=== PATIENT | male | born 1955 | race Caucasian/White ===

== ENCOUNTER 2024-04-14 21:56 | Emergency (ER) | payer OTHER, BC ==
--- NOTE | 2024-04-14 22:16 | EDPHYS ---
Physician Documentation [facility] Name: Saud Ng Age: 68 yrs Sex: Male : 1955 Arrival Date: 04/14/2024 Time: 21:56 Bed 14 Private MD: ED Physician Amrik Hammer HPI: 04/14 22:07 This 68 yrs old Male presents to ER via Ambulatory with complaints of Chest claudette Pain. 22:07 The patient or guardian reports chest pain that is located primarily in the substernal claudette area. Onset: 1 day(s) ago. The pain radiates to Associated signs and symptoms: Pertinent positives: shortness of breath. The chest pain is described as a pressure. Duration: The patient or guardian reports multiple episodes, with no pattern. Modifying factors: The symptoms are alleviated by nothing. the symptoms are aggravated by nothing. Severity of pain: At its worst the pain was moderate in the emergency department the pain has improved moderately. The patient has experienced similar episodes in the past, multiple times. Historical: - Allergies: 22:02 No Known Allergies; kc6 - PMHx: 22:02 Hypertensive disorder; Myocardial infarction; Diabetes mellitus; kc6 - PSHx: 22:02 Stented artery; kc6 22:05 Appendectomy; kc6 - Immunization history:: Client reports receiving the 2nd dose of the Covid vaccine, Flu vaccine is not up to date. - Infectious Disease History:: Denies. - Social history:: Smoking status: Patient denies any tobacco usage or history of. - Family history:: not pertinent. ROS: 22:07 Constitutional: Negative for fever, chills, and weight loss, Eyes: Negative for injury, claudette pain, redness, and discharge, ENT: Negative for injury, pain, and discharge, Neck: Negative for injury, pain, and swelling, Respiratory: Negative for shortness of breath, cough, wheezing, and pleuritic chest pain, Abdomen/GI: Negative for abdominal pain, nausea, vomiting, diarrhea, and constipation, Back: Negative for injury and pain, : Negative for injury, bleeding, discharge, and swelling, MS/Extremity: Negative for injury and deformity, Skin: Negative for injury, rash, and discoloration, Neuro: Negative for headache, weakness, numbness, tingling, and seizure, Psych: Negative for depression, anxiety, suicide ideation, homicidal ideation, and hallucinations, Allergy/Immunology: Negative for hives, rash, and allergies, Endocrine: Negative for neck swelling, polydipsia, polyuria, polyphagia, and marked weight changes, Hematologic/Lymphatic: Negative for swollen nodes, abnormal bleeding, and unusual bruising, 22:07 Cardiovascular: Positive for chest pain, of the , 22:07 MS/extremity: Negative for acute changes, injury or acute deformity, Exam: 22:07 Constitutional: This is a well developed, well nourished patient who is awake, alert, claudette and in no acute distress. Head/Face: Normocephalic, atraumatic. Eyes: Pupils equal round and reactive to light, extra-ocular motions intact. Lids and lashes normal. Conjunctiva and sclera are non-icteric and not injected. Cornea within normal limits. Periorbital areas with no swelling, redness, or edema. ENT: Nares patent. No nasal discharge, no septal abnormalities noted. Tympanic membranes are normal and external auditory canals are clear. Oropharynx with no redness, swelling, or masses, exudates, or evidence of obstruction, uvula midline. Mucous membranes moist. Neck: Trachea midline, no thyromegaly or masses palpated, and no cervical lymphadenopathy. Supple, full range of motion without nuchal rigidity, or vertebral point tenderness. No Meningismus. Chest/axilla: Normal chest wall appearance and motion. Nontender with no deformity. No lesions are appreciated. Cardiovascular: Regular rate and rhythm with a normal S1 and S2. No gallops, murmurs, or rubs. Normal PMI, no JVD. No pulse deficits. Respiratory: Lungs have equal breath sounds bilaterally, clear to auscultation and percussion. No rales, rhonchi or wheezes noted. No increased work of breathing, no retractions or nasal flaring. Abdomen/GI: Soft, non-tender, with normal bowel sounds. No distension or tympany. No guarding or rebound. No evidence of tenderness throughout. Back: No spinal tenderness. No costovertebral tenderness. Full range of motion. Male : Normal genitalia with no discharge or lesions. Skin: Warm, dry with normal turgor. Normal color with no rashes, no lesions, and no evidence of cellulitis. MS/ Extremity: Pulses equal, no cyanosis. Neurovascular intact. Full, normal range of motion. Neuro: Awake and alert, GCS 15, oriented to person, place, time, and situation. Cranial nerves II-XII grossly intact. Motor strength 5/5 in all extremities. Sensory grossly intact. Cerebellar exam normal. Normal gait. Psych: Awake, alert, with orientation to person, place and time. Behavior, mood, and affect are within normal limits. 22:07 ECG was reviewed by the Attending Physician. Vital Signs: 22:01 BP 139 / 72; Pulse 81; Resp 17 S; Temp 97.9(O); Pulse Ox 100% on R/A; Weight 111.13 kg kc6 (R); Height 6 ft. 0 in. (R); Pain 5/10; 22:46 Weight 115.5 kg; pc2 23:00 BP 121 / 67; Pulse 71; Resp 16; Pulse Ox 98% on R/A; pc2 23:30 BP 107 / 74; Pulse 71; Resp 16; Pulse Ox 99% on R/A; pc2 04/15 00:00 BP 123 / 66; Pulse 62; Resp 18; Pulse Ox 98% on R/A; pc2 00:30 BP 116 / 66; Pulse 55; Resp 16; Pulse Ox 98% on R/A; pc2 01:00 BP 111 / 57; Pulse 56; Resp 16; Pulse Ox 98% on R/A; pc2 01:30 BP 126 / 66; Pulse 50; Resp 16; Pulse Ox 98% on R/A; pc2 02:00 BP 119 / 79; Pulse 58; Resp 15; Pulse Ox 98% on R/A; pc2 03:00 BP 125 / 75; Pulse 53; Resp 16; Pulse Ox 97% on R/A; pc2 04/14 22:01 Body Mass Index 33.23 (115.50 kg, 182.88 cm) [facility] 04/14 22:01 Pain Scale: Adult kc MDM: 04/14 22:01 Patient medically screened. claudette 22:10 Differential diagnosis: abnormal EKG, acute myocardial infarction, acute pericarditis, claudette anxiety, congestive heart failure Cholelithiasis costochondritis, esophagitis, gastroesophageal reflux disease (GERD), hiatal hernia, pancreatitis, peptic ulcer disease, pericarditis, pleurisy, pneumothorax, stable angina, unstable angina. HEART Score: History: Highly Suspicious (2), ECG: Non specific repolarization disturbance / LBTB / PM (1), Age: > or = 65 years (2), Risk Factors: > or = 3 Risk factors for atherosclerotic disease (2), [Hypercholesterolemia] [Hypertension] [DM] [+ Family HX] [Obesity] Troponin: < or = 1 x Normal Limit (0). The patient was given aspirin in the Emergency Department. AMBER Risk Score: 1 - patient's age is greater or equal to 65 years, 1 - Three or more CAD risk factors, [Family Hx], [HTN], [Elevated Cholesterol], [DM], 1- Known CAD, 1 - ASA use in past 7 days. Data reviewed: vital signs, nurses notes, lab test result(s), EKG, radiologic studies, CT scan, plain films. Consideration of Admission/Observation Escalation of care including admission/observation considered. I considered the following discharge prescriptions or medication management in the emergency department Medications were administered in the Emergency Department. See MAR. Independent interpretation of the following test(s) in the Emergency Department EKG: See my EKG interpretation above. Test considered but Not performed: CT: no ct chest. Historians other than the Patient: Spouse/Significant Other: and son. Care significantly affected by the following chronic conditions: Diabetes, Hypertension, Obesity. Counseling: I had a detailed discussion with the patient and/or guardian regarding the historical points, exam findings, and any diagnostic results supporting the discharge/admit diagnosis, lab results, radiology results, the need to transfer to another facility, for higher level of care, [facility] does not immediately have the required specialist, dr kari gómez. 04/14 22:02 Order name: Basic Metabolic Panel; Complete Time: 23:50 [facility] 04/14 22:02 Order name: CBC with Diff; Complete Time: 23:50 [facility] 04/14 22:02 Order name: LFT's; Complete Time: 23:50 [facility] 04/14 22:02 Order name: Magnesium; Complete Time: 23:50 [facility] 04/14 22:02 Order name: NT PRO-BNP; Complete Time: 23:50 [facility] 04/14 22:02 Order name: Troponin HS; Complete Time: 23:50 [facility] 04/14 22:02 Order name: Urinalysis w/ reflexes [facility] 04/14 22:48 Order name: Ptt, Activated; Complete Time: 23:50 vc1 04/14 23:13 Order name: Protime (+INR); Complete Time: 23:50 EDMS 04/15 02:40 Order name: Ptt, Activated pc2 04/15 04:53 Order name: Troponin High Sensitivity: 500 am [facility] 04/14 22:02 Order name: XRAY Chest (1 view) [facility] 04/14 22:02 Order name: Cardiac monitoring; Complete Time: 22:18 [facility] 04/14 22:02 Order name: EKG - Nurse/Tech; Complete Time: 22:12 [facility] 04/14 22:02 Order name: IV Saline Lock; Complete Time: 22:32 [facility] 04/14 22:02 Order name: Labs collected and sent; Complete Time: 22:32 [facility] 04/14 22:02 Order name: O2 Per Protocol; Complete Time: 22:18 [facility] 04/14 22:02 Order name: O2 Sat Monitoring; Complete Time: 22:18 [facility] Administered Medications: 22:40 Drug: Aspirin PO 162 mg PO once Route: PO; pc2 23:10 Follow up: Response: No adverse reaction pc2 22:40 Drug: Metoprolol PO 25 mg PO once Route: PO; pc2 23:10 Follow up: Response: No adverse reaction pc2 23:00 Drug: Famotidine IVP 20 mg IVP once; dilute with 10 mL 0.9% NaCl; give over 2 minutes pc2 Route: IVP; Site: right hand; 23:30 Follow up: Response: No adverse reaction pc2 23:00 Drug: morphine IVP or IV 2 mg IVP once over 4 mins Route: IVP; Infused Over: 4 mins; pc2 Site: right hand; 23:30 Follow up: Response: No adverse reaction; RASS: Alert and Calm (0) pc2 23:00 Drug: Ondansetron IVP 4 mg IVP once; over 2 minutes Route: IVP; Site: right hand; pc2 23:30 Follow up: Response: No adverse reaction pc2 23:07 Drug: Heparin (SD Drip) 12 units/kg/hr - ([place] [address] units, D5W IV 500 ml) IV at pc2 calculated rate Per protocol; Max initial rate 1000 units/hr {Co-Signature: [email or web address] (Luana Wheat RN).} Route: IV; Rate: calculated rate; Site: left hand; 23:37 Follow up: Response: No adverse reaction; IV Status: Infusion continued pc2 04/15 06:05 Follow up: IV Status: Infusion continued upon transfer pc2 04/14 23:08 Drug: Heparin (SD-Bolus No thrombolytic) - HEParin IVP 60 units/kg IVP once; Max 5000 pc2 units {Co-Signature: [email or web address] (Luana Wheat RN).} Route: IVP; Site: right hand; 23:38 Follow up: Response: No adverse reaction pc2 04/15 00:56 Not Given (Other Intervention Used): ns 0.9% 1000 ml IV at 125 ml/hr continuous pc2 00:56 Not Given (Patient Refused): morphineor iv 2 mg IVP once over 4 mins pc2 Disposition Summary: 04/14/24 22:15 Transfer Ordered Notes: Transfer Location: [facility] claudette Reason: Higher level of care claudette Condition: Stable claudette Problem: new claudette Symptoms: have improved claudette Accepting Physician: to protestant kari gómez(04/15/24 06:06) pc2 Diagnosis - Chest pain, unspecified claudette - Essential (primary) hypertension claudette - Angina pectoris, unspecified - sp stents x 2 claudette Forms: - Medication Reconciliation Form claudette - SBAR form claudette Signatures: Dispatcher [employer] EDMS Amrik Hammer MD MD claudette Sandra Del Rio, RN RN kc6 Willa Miller, RN RN pc2 Luana Wheat RN [email or web address] Corrections: (The following items were deleted from the chart) 04/14 22:03 22:02 BASIC METABOLIC PANEL+C.LAB.BRZ ordered. EDMS EDMS 22:03 22:02 CBC+H.LAB.BRZ ordered. EDMS EDMS 22:03 22:02 HEPATIC FUNCTION+C.LAB.BRZ ordered. EDMS EDMS 22:03 22:02 MAGNESIUM+C.LAB.BRZ ordered. EDMS EDMS 22:03 22:02 PROBNP+C.LAB.BRZ ordered. EDMS EDMS 22:03 22:02 Troponin High Sensitivity+C.LAB.BRZ ordered. EDMS EDMS 22:03 22:02 Urinalysis+U.LAB.BRZ ordered. EDMS EDMS 22:03 22:03 Chest Single View+RAD.RAD.BRZ ordered. EDMS EDMS 23:13 22:02 PROTIME (+INR)+COAG.LAB.BRZ ordered. EDMS EDMS 04/15 06:06 04/14 22:15 to protestant kari gómez claudette pc2
--- NOTE | 2024-04-14 22:16 | ER ---
Nurse's Notes [facility] Name: Saud Ng Age: 68 yrs Sex: Male : 1955 Arrival Date: 04/14/2024 Time: 21:56 Bed 14 Private MD: Diagnosis: Chest pain, unspecified;Essential (primary) hypertension;Angina pectoris, unspecified-sp stents x 2 Presentation: 04/14 22:01 Chief complaint: Patient states: intermittent CP with HTN since 1800. recent stent kc6 placed on the 10 of March. took 2 nitro [employer]. Coronavirus screen: At this time, the client does not indicate any symptoms associated with coronavirus-19. Ebola Screen: No symptoms or risks identified at this time. Initial Sepsis Screen: Does the patient meet any 2 criteria? No. Patient's initial sepsis screen is negative. Does the patient have a suspected source of infection? No. Patient's initial sepsis screen is negative. Risk Assessment: Do you want to hurt yourself or someone else? Patient reports no desire to harm self or others. Onset of symptoms was April 14, 2024. 22:01 Method Of Arrival: Ambulatory kc6 22:01 Acuity: KAITLIN 2 kc6 Triage Assessment: 22:29 General: Appears in no apparent distress. comfortable, well groomed, Behavior is calm, pc2 cooperative, appropriate for age. 22:29 Pain: Complains of pain in chest Quality of pain is described as discomfort. EENT: No pc2 signs and/or symptoms were reported regarding the EENT system. Neuro: Level of Consciousness is awake, alert, obeys commands, Oriented to person, place, time, situation, Appropriate for age Gait is steady, Speech is normal, Facial symmetry appears normal. Cardiovascular: Reports chest pain, lightheadedness, Heart tones S1 S2 Capillary refill < 3 seconds Clubbing of nail beds is absent JVD is absent Patient's skin is warm and dry. Pulses are all present. Respiratory: Airway is patent Respiratory effort is even, unlabored, Respiratory pattern is regular, symmetrical, Breath sounds are clear bilaterally. GI: No signs and/or symptoms were reported involving the gastrointestinal system. : No signs and/or symptoms were reported regarding the genitourinary system. Derm: No signs and/or symptoms reported regarding the dermatologic system. Musculoskeletal: No signs and/or symptoms reported regarding the musculoskeletal system. Historical: - Allergies: 22:02 No Known Allergies; kc6 - PMHx: 22:02 Hypertensive disorder; Myocardial infarction; Diabetes mellitus; kc6 - PSHx: 22:02 Stented artery; kc6 22:05 Appendectomy; kc6 - Immunization history:: Client reports receiving the 2nd dose of the Covid vaccine, Flu vaccine is not up to date. - Infectious Disease History:: Denies. - Social history:: Smoking status: Patient denies any tobacco usage or history of. - Family history:: not pertinent. Screenin:35 [facility] ED Fall Risk Assessment (Adult) History of falling in the last 3 months, pc2 including since admission No falls in past 3 months (0 pts) Confusion or Disorientation No (0 pts) Intoxicated or Sedated No (0 pts) Impaired Gait No (0 pts) Mobility Assist Device Used No (0 pt) Altered Elimination No (0 pt) Score/Fall Risk Level 0 - 2 = Low Risk Oriented to surroundings, Maintained a safe environment, Hourly rounding (assess needs \T\ fall precautionary measures) done. Abuse screen: Denies threats or abuse. Denies injuries from another. Nutritional screening: No deficits noted. Tuberculosis screening: No symptoms or risk factors identified. Assessment: 23:57 Reassessment: see triage. pc2 04/15 00:30 Reassessment: Patient appears in no apparent distress at this time. Patient and/or pc2 family updated on plan of care and expected duration. Pain level reassessed. Patient is alert, oriented x 3, equal unlabored respirations, skin warm/dry/pink. Patient states symptoms have improved. 01:45 Reassessment: Patient appears in no apparent distress at this time. Patient and/or pc2 family updated on plan of care and expected duration. Pain level reassessed. 03:20 Reassessment: aPTT within therapeutic range. Heparin infusion continues, no rate change pc2 required at this time. Will recheck levels in 4 hrs. Vital Signs: 04/14 22:01 BP 139 / 72; Pulse 81; Resp 17 S; Temp 97.9(O); Pulse Ox 100% on R/A; Weight 111.13 kg kc6 (R); Height 6 ft. 0 in. (R); Pain 5/10; 22:46 Weight 115.5 kg; pc2 23:00 BP 121 / 67; Pulse 71; Resp 16; Pulse Ox 98% on R/A; pc2 23:30 BP 107 / 74; Pulse 71; Resp 16; Pulse Ox 99% on R/A; pc2 04/15 00:00 BP 123 / 66; Pulse 62; Resp 18; Pulse Ox 98% on R/A; pc2 00:30 BP 116 / 66; Pulse 55; Resp 16; Pulse Ox 98% on R/A; pc2 01:00 BP 111 / 57; Pulse 56; Resp 16; Pulse Ox 98% on R/A; pc2 01:30 BP 126 / 66; Pulse 50; Resp 16; Pulse Ox 98% on R/A; pc2 02:00 BP 119 / 79; Pulse 58; Resp 15; Pulse Ox 98% on R/A; pc2 03:00 BP 125 / 75; Pulse 53; Resp 16; Pulse Ox 97% on R/A; pc2 04/14 22:01 Body Mass Index 33.23 (115.50 kg, 182.88 cm) [facility] 04/14 22:01 Pain Scale: Adult [facility] ED Course: 04/14 22:00 Patient arrived in ED. ra3 22:01 Amrik Hammer MD is Attending Physician. claudette 22:02 Triage completed. kc6 22:05 Arm band placed on. kc6 22:15 Willa Miller, RN is Primary Nurse. pc2 22:18 Client placed on continuous cardiac and pulse oximetry monitoring. NIBP monitoring pc2 applied. 22:18 X-ray(s) taken. pc2 22:31 Patient has correct armband on for positive identification. Placed in gown. Bed in low pc2 position. Call light in reach. Side rails up X2. 22:32 XRAY Chest (1 view) In Process Unspecified. EDMS 22:32 Basic Metabolic Panel Sent. pc2 22:32 CBC with Diff Sent. pc2 22:32 LFT's Sent. pc2 22:32 Magnesium Sent. pc2 22:32 NT PRO-BNP Sent. pc2 22:32 Troponin HS Sent. pc2 23:09 Ptt, Activated Sent. pc2 23:57 Provided Education on: POC and time frame. pc2 23:[address] Hammer contact [facility] office for [id number] consult. Informed Dr. Gray will call ty back for Sux2Yoz. 23:57 No provider procedures requiring assistance completed. pc2 08/28 00:[address] Pike. ty 00:37 [facility] transfer center called to initiate transfer, spoke with Leonor. ty 00:50 Transfer Center stated no cardiology beds available, and at max capacity. ty 01:03 Transfer called and stated will update regarding bed placement at 0400. ty 03:01 Ptt, Activated Sent. oe 03:01 Inserted saline lock: 22 gauge in left wrist, using aseptic technique. Blood collected. oe Flushed with 10 mL NS. 04:00 Contacted [facility] for an update regarding patient bed ty placement, on hold for 10 minutes, spoke with Leonor. Placed on hold again for 8 minutes. Doc 2 Doc initiated. 05:27 [facility] contacted for update regarding admin approval, stated ty admin approval was already given, but had not called. 05:37 [facility] called for patient transport, eta 20 minutes. ty 05:50 Report given to SEBASTIAN Snow receiving patient to [facility] ER. pc2 06:00 Bedside report given to [facility]. pc2 06:06 Patient transferred, IV remains in place. pc2 Administered Medications: 04/14 22:40 Drug: Aspirin PO 162 mg PO once Route: PO; pc2 23:10 Follow up: Response: No adverse reaction pc2 22:40 Drug: Metoprolol PO 25 mg PO once Route: PO; pc2 23:10 Follow up: Response: No adverse reaction pc2 23:00 Drug: Famotidine IVP 20 mg IVP once; dilute with 10 mL 0.9% NaCl; give over 2 minutes pc2 Route: IVP; Site: right hand; 23:30 Follow up: Response: No adverse reaction pc2 23:00 Drug: morphine IVP or IV 2 mg IVP once over 4 mins Route: IVP; Infused Over: 4 mins; pc2 Site: right hand; 23:30 Follow up: Response: No adverse reaction; RASS: Alert and Calm (0) pc2 23:00 Drug: Ondansetron IVP 4 mg IVP once; over 2 minutes Route: IVP; Site: right hand; pc2 23:30 Follow up: Response: No adverse reaction pc2 23:07 Drug: Heparin (NC Drip) 12 units/kg/[place] - ([place] [address] units, D5W IV 500 ml) IV at pc2 calculated rate Per protocol; Max initial rate 1000 units/hr {Co-Signature: [email or web address] (Luana Wheat RN).} Route: IV; Rate: calculated rate; Site: left hand; 23:37 Follow up: Response: No adverse reaction; IV Status: Infusion continued pc2 04/15 06:05 Follow up: IV Status: Infusion continued upon transfer pc2 04/14 23:08 Drug: Heparin (NC-Bolus No thrombolytic) - HEParin IVP 60 units/kg IVP once; Max 5000 pc2 units {Co-Signature: [email or web address] (Luana Wheat RN).} Route: IVP; Site: right hand; 23:38 Follow up: Response: No adverse reaction pc2 04/15 00:56 Not Given (Other Intervention Used): ns 0.9% 1000 ml IV at 125 ml/hr continuous pc2 00:56 Not Given (Patient Refused): morphineor iv 2 mg IVP once over 4 mins pc2 Medication: 04/14 23:54 VIS not applicable for this client. pc2 Outcome: 22:15 ER care complete, transfer ordered by . claudette 04/15 06:05 Transferred [facility] to [facility], Transfer form completed. X-rays sent pc2 w/ patient. Condition: stable Instructed on the need for transfer, Demonstrated understanding of instructions, 06:06 Patient left the ED. pc2 Signatures: Dispatcher [employer] EDMS Amrik Hammer MD MD cha Espinosa, Orlando oe Campbell, Kaitlyn, RN RN kc6 Irene Raphael ra3 Ned Torre Pam, RN RN pc2 Luana Wheat RN [email or web address] Corrections: (The following items were deleted from the chart) 04/14 22:04 22:01 Chief complaint: Patient states: intermittent CP with HTN since 1800. recent kc6 stent placed on the 10 of March. kc6 23:13 22:32 PROTIME (+INR)+COAG.LAB.BRZ drawn and sent. pc2 EDMS
[2024-04-14] MEDS ORDERED: HEPARIN 5000 UNIT/ML 1 ML VIAL ONE (22:25)
[2024-04-14] MEDS ORDERED: METOPROLOL TAR 25 MG TAB ONE (22:25)
[2024-04-14] MEDS ORDERED: ASPIRIN 81 MG CHEWABLE TABLET ONE (22:25)
[2024-04-14] MEDS ORDERED: ONDANSETRON 4 MG/2 ML VIAL ONE (22:25)
[2024-04-14] MEDS ORDERED: MORPHINE 2 MG/ML SYR ONE (22:26)
[2024-04-14] MEDS ORDERED: NA CHLORIDE 0.9% 1,000 ML ONE (22:26)
[2024-04-14] MEDS ORDERED: FAMOTIDINE 20 MG/2 ML VIAL IV ONE (22:26)
[2024-04-14] MEDS ORDERED: HEPARIN/D5W 25,000 UNIT/500 ML BAG IV ONE (22:27)
[2024-04-14 23:24] LABS: Absolute Eosinophils 0.2 K/uL (0-0.5); Absolute Lymphocytes (CBC) 1.6 K/uL (0.7-4.9); Absolute Monocytes 0.6 K/uL (0.1-1.3); Absolute Neutrophil 5.1 K/uL (1.8-8.0); Basophils % 0.6 % (0-1.3); Eosinophils % 2.3 % (0-4.4); Hematocrit 38.9 % (39.6-49.0); Hemoglobin 13.3 g/dL (13.6-17.9); Lymphocytes % 21.5 % (15.3-44.8); MCH 30.4 pg (27.0-35.0); MCHC 34.3 g/dL (32.0-36.0); MCV 88.6 fL (80-100); MPV 8.5 fL (7.6-11.3); Monocytes % 8.3 % (3.3-12.3); Neutrophils % 67.3 % (41.7-73.7); Platelets 188 thou/uL (152-406); RBC Red Blood Cell Count 4.39 M/uL (4.33-5.43); Red Cell Distribution Width 12.9 % (12.1-15.2)
[2024-04-14 23:26] LABS: PT Prothrombin Time 11.9 SECONDS (9.4-12.5); PTT, Activated Partial Thromb 32.1 SECONDS (24.3-36.9); Protime INR 1.06
[2024-04-14 23:35] LABS: ALT/SGPT 31 U/L (16-61); AST/SGOT 21 U/L (15-37); Albumin 3.9 g/dL (3.4-5.0); Albumin/Globulin Ratio 1.2 (1.1-1.8); Alkaline Phosphatase 34 U/L (45-117); Anion Gap 4.9 mEq/L (5.0-15.0); BUN Blood Urea Nitrogen 18 mg/dL (7-18); Bicarbonate 30 mEq/L (21-32); Bilirubin Total 0.3 mg/dL (0.2-1.0); Globulin 3.3 g/dL (2.3-3.5); Glomerular Filtration Rate 76 ml/min (=/>90); Glucose Level 188 mg/dL (74-106); Magnesium 2.1 mg/dL (1.6-2.4); NT PRO-BNP 59 pg/mL (<125); Potassium 3.9 mEq/L (3.5-5.1); Protein, Total 7.2 g/dL (6.4-8.2); Sodium Level 138 mEq/L (136-145)
[2024-04-14 23:43] LABS: Bilirubin Direct < 0.2 mg/dL (0-0.2); Bilirubin Indirect, Calculated 0.1 mg/dL (0.2-0.8)
[2024-04-15 05:46] LABS: Specific Gravity 1.008 (1.005-1.030); Urine Bilirubin NEGATIVE (Negative); Urine Blood Negative (Negative); Urine Clarity Clear (Clear); Urine Color Colorless (Yellow); Urine Glucose NEGATIVE (Negative); Urine Ketones NEGATIVE (Negative); Urine Microscopic Reflex YN NO UMIC; Urine Nitrite NEGATIVE (Negative); Urine Protein NEGATIVE (Negative); Urine Urobilinogen Normal (Normal); Urine pH 6.5 (5.0-7.0)
[2024-04-15 06:15] VITALS: TEMP 97.9
[2024-04-15 06:38] VITALS: BP 125/75; O2SAT 97
--- NOTE | 2024-04-15 10:08 | RAD REPORT ---
EXAM DESCRIPTION: RAD - Chest Single View - 04/14/2024 10:30 pm CLINICAL HISTORY: Chest Pain. COMPARISON: None. TECHNIQUE: XR CHEST 1 VIEW 04/14/2024 10:02 PM CDT FINDINGS: The heart is borderline in size. Lungs are clear without consolidation, atelectasis, mass or edema. There is no pleural effusion. There is no pneumothorax. There are no acute osseous findings . IMPRESSION: Clear lungs. Electronically signed by: Ron Hou MD 04/14/2024 11:05 PM CDT RP Due to temporary technical issues with the PACS/Fluency reporting system, reports are being signed by the in house radiologist without review as a courtesy to ensure prompt reporting. The interpreting r adiologist is fully responsible for the content of the report.
--- NOTE | 2024-04-16 12:55 | EKG ---
Test Date: 2024-04-14 Test Time: 22:10:03 Gear Lapper: JOSSIE MEASUREMENT RESULTS: Intervals: Rate: 81 NE: 162 QRSD: 108 QT: 378 QTc: 439 Costa: P: 69 NE: 162 QRS: -55 T: 56 INTERPRETIVE STATEMENTS: Normal sinus rhythm Left anterior fascicular block Moderate voltage criteria for LVH, may be normal variant Abnormal ECG No previous ECG available for comparison Electronically Signed On 04-16-24 12:54:54 CDT by Jonathon Gomez
== END 2024-04-15 06:06 | disposition short-term general hospital (02) ==
LOC: ER 21:56
DX: I10 Essential (primary) hypertension (principal); I20.9 Angina pectoris, unspecified; I25.2 Old myocardial infarction; Z95.818 Presence of other cardiac implants and grafts; E11.9 Type 2 diabetes mellitus without complications
CPT/HCPCS: 93005; 85025; 80048; 36415; 83735; 85610; 80076; 85730 ×2; 81003; 84484 ×2; 83880; 71045; J1644; J2270; J2405; J7030

== ENCOUNTER 2024-09-04 14:12 | Emergency (ER) | payer OTHER, BC ==
[2024-09-04 15:11] LABS: Absolute Eosinophils 0.1 K/uL (0-0.5); Absolute Lymphocytes (CBC) 1.7 K/uL (0.7-4.9); Absolute Monocytes 0.6 K/uL (0.1-1.3); Absolute Neutrophil 6.3 K/uL (1.8-8.0); Basophils % 0.4 % (0-1.3); Eosinophils % 0.8 % (0-4.4); Hematocrit 43.4 % (39.6-49.0); Hemoglobin 15.3 g/dL (13.6-17.9); Lymphocytes % 19.3 % (15.3-44.8); MCH 30.6 pg (27.0-35.0); MCHC 35.2 g/dL (32.0-36.0); MCV 86.9 fL (80-100); MPV 8.2 fL (7.6-11.3); Monocytes % 6.8 % (3.3-12.3); Neutrophils % 72.7 % (41.7-73.7); Platelets 220 thou/uL (152-406); RBC Red Blood Cell Count 4.99 M/uL (4.33-5.43); Red Cell Distribution Width 13.4 % (12.1-15.2)
[2024-09-04 15:13] LABS: PT Prothrombin Time 11.8 SECONDS (9.4-12.5); Protime INR 1.13
[2024-09-04 15:41] LABS: ALT/SGPT 34 U/L (16-61); AST/SGOT 20 U/L (15-37); Albumin 4.2 g/dL (3.4-5.0); Albumin/Globulin Ratio 1.1 (1.1-1.8); Alkaline Phosphatase 36 U/L (45-117); Anion Gap 10.1 mEq/L (5.0-15.0); BUN Blood Urea Nitrogen 18 mg/dL (7-18); Bicarbonate 25 mEq/L (21-32); Bilirubin Total 0.4 mg/dL (0.2-1.0); Globulin 3.7 g/dL (2.3-3.5); Glomerular Filtration Rate 69 ml/min (=/>90); Glucose Level 116 mg/dL (74-106); Magnesium 1.9 mg/dL (1.6-2.4); NT PRO-BNP 26 pg/mL (<125); Potassium 4.1 mEq/L (3.5-5.1); Protein, Total 7.9 g/dL (6.4-8.2); Sodium Level 135 mEq/L (136-145); Troponin High Sensitivity 6.1 pg/mL (<58.9)
[2024-09-04 15:43] LABS: Bilirubin Direct < 0.2 mg/dL (0-0.2); Bilirubin Indirect, Calculated 0.2 mg/dL (0.2-0.8)
--- NOTE | 2024-09-04 16:07 | RAD REPORT ---
EXAM: Chest Single View HISTORY: CHEST PAIN COMPARISON: 04/14/2024 FINDINGS: LUNGS/PLEURA: The lungs are clear. No pleural effusions or pneumothorax. No pulmonary edema. MEDIASTINUM: The mediastinal silhouette is within normal limits. CARDIAC: The cardiac silhouette is within normal limits. UPPER ABDOMEN: No significant abnormality. BONES: No acute abnormality. LINES/TUBES/OTHER: N/A IMPRESSION: No evidence of acute cardiopulmonary disease.
--- NOTE | 2024-09-04 17:37 | ER ---
Nurse's Notes [facility] Name: Saud Ng Age: 68 yrs Sex: Male : 1955 Arrival Date: 09/04/2024 Time: 14:12 Bed 15 Private MD: Diagnosis: Chest pain, unspecified Presentation: 09/04 14:16 Chief complaint: Patient states: chest pain started at noon, has taken 3 nitroglycerin, ko1 is wearing a portable monitor currently. Coronavirus screen: At this time, the client does not indicate any symptoms associated with coronavirus-19. Ebola Screen: No symptoms or risks identified at this time. Initial Sepsis Screen: Does the patient meet any 2 criteria? No. Patient's initial sepsis screen is negative. Does the patient have a suspected source of infection? No. Patient's initial sepsis screen is negative. Risk Assessment: Do you want to hurt yourself or someone else? Patient reports no desire to harm self or others. Onset of symptoms was September 04, 2024. 14:16 Method Of Arrival: Ambulatory ko1 14:16 Acuity: KAITLIN 3 ko1 Triage Assessment: 14:19 General: Appears in no apparent distress. Behavior is calm, cooperative, appropriate ko1 for age. Pain: Complains of pain in mid-sternal area. Cardiovascular: Reports chest pain. Historical: - Allergies: 14:19 No Known Allergies; ko1 - Home Meds: 14:19 Unable to obtain [Active]; ko1 - PMHx: 14:19 diabetes mellitus; Hypertensive disorder; Myocardial infarction; ko1 - PSHx: 14:19 Appendectomy; Stented artery; ko1 - Immunization history:: Adult Immunizations up to date. - Infectious Disease History:: Denies. - Social history:: Smoking status: Patient denies any tobacco usage or history of. Screenin:00 [facility] ED Fall Risk Assessment (Adult) History of falling in the last 3 months, bp including since admission No falls in past 3 months (0 pts) Confusion or Disorientation No (0 pts) Intoxicated or Sedated No (0 pts) Impaired Gait No (0 pts) Mobility Assist Device Used No (0 pt) Altered Elimination No (0 pt) Score/Fall Risk Level 0 - 2 = Low Risk Oriented to surroundings. Abuse screen: Denies threats or abuse. Denies injuries from another. Nutritional screening: No deficits noted. Tuberculosis screening: No symptoms or risk factors identified. Assessment: 14:20 General: Appears in no apparent distress. uncomfortable, Behavior is calm, cooperative, bp appropriate for age. 16:30 Reassessment: Patient appears in no apparent distress at this time. Patient is alert, bp oriented x 3, equal unlabored respirations, skin warm/dry/pink. 17:00 Reassessment: REPEAT TROP SENT. bp Vital Signs: 14:16 BP 143 / 75; Pulse 85; Resp 17; Temp 97.8; Pulse Ox 100% ; Weight 111.13 kg; Height 6 ko1 ft. 0 in. ; 17:00 BP 139 / 69; Pulse 88; Resp 16; Pulse Ox 99% ; bp 18:19 BP 127 / 71; Pulse 67; Resp 16; Pulse Ox 99% ; bp 14:16 Body Mass Index 33.23 (111.13 kg, 182.88 cm) ko1 ED Course: 14:13 Patient arrived in ED. ra3 14:19 Triage completed. ko1 14:19 Arm band placed on right wrist. Patient placed in an exam room, on a stretcher, on ko1 rn cardiac rehab, on pulse oximetry, Patient notified of wait time. 14:20 Letty Garner PA-C is PHCP. sb4 14:20 Gil Munoz MD is Attending Physician. sb4 14:38 David Ng, SEBASTIAN is Primary Nurse. bp 15:02 Basic Metabolic Panel Sent. em1 15:02 CBC with Diff Sent. em1 15:02 LFT's Sent. em1 15:02 Magnesium Sent. em1 15:02 NT PRO-BNP Sent. em1 15:02 PT-INR Sent. em1 15:02 Troponin HS Sent. em1 15:02 Initial lab(s) drawn, by me, sent to lab. Inserted saline lock: 20 gauge in right em1 antecubital area, using aseptic technique. Blood collected. Flushed with 10 mL NS. 15:35 XRAY Chest (1 view) In Process Unspecified. EDMS 16:00 Patient has correct armband on for positive identification. Provided Education on: NA. bp Client placed on continuous cardiac and pulse oximetry monitoring. NIBP monitoring applied. laboratory monitor on. Pulse ox on. NIBP on. 18:19 No provider procedures requiring assistance completed. IV discontinued, intact, bp bleeding controlled, No redness/swelling at site. Pressure dressing applied. Patient maintains SpO2 saturation greater than 95% on room air. Administered Medications: No medications were administered Medication: 18:20 VIS not applicable for this client. bp Outcome: 17:36 Discharge ordered by MD. orozco 18:19 Discharged to home ambulatory, with family, bp 18:19 Condition: stable 18:19 Discharge instructions given to patient, Instructed on discharge instructions, follow up and referral plans. Demonstrated understanding of instructions, follow-up care, 18:20 Patient left the ED. bp Signatures: Dispatcher [employer] EDAndrew Bui em1 David Ng, RN RN Danni Harper, SEBASTIAN RN ko1 Letty Garner, PA-Rubina PAKadeem sb4 Irene Raphael ra3
--- NOTE | 2024-09-04 17:37 | EDPHYS ---
Physician Documentation [facility] Name: Saud Ng Age: 68 yrs Sex: Male : 1955 Arrival Date: 09/04/2024 Time: 14:12 Bed 15 Private MD: ED Physician Gil Munoz HPI: 09/04 14:42 This 68 yrs old Male presents to ER via Ambulatory with complaints of Chest Pain. sb4 14:42 patient with history of HTN, DM, CAD s/p 2 stents 6 months ago presents with chest sb4 pain. states he was having chest pain prior to the stents and has still been experiencing chest pain since. states the pains are intermittent, usually after exerting himself, improve with rest and nitroglycerin. he has seen cardiology since, had several tests done without any diagnoses/explanations for the chest pains. states today he was working in the yard, lifted a 40 pound box, then started experiencing a sharp chest pain that radiates to both of his arms. he took 3 nitroglycerin and states the pain hasn't really improved and his BP has increased. he is currently wearing a holter monitor per his cleat thrower. Historical: - Allergies: 14:19 No Known Allergies; ko1 - Home Meds: 14:19 Unable to obtain [Active]; ko1 - PMHx: 14:19 diabetes mellitus; Hypertensive disorder; Myocardial infarction; ko1 - PSHx: 14:19 Appendectomy; Stented artery; ko1 - Immunization history:: Adult Immunizations up to date. - Infectious Disease History:: Denies. - Social history:: Smoking status: Patient denies any tobacco usage or history of. ROS: 14:44 Constitutional: Negative for fever, chills, and weight loss, sb4 14:44 Cardiovascular: Positive for chest pain, 14:44 All other systems are negative, Exam: 14:44 Constitutional: This is a well developed, well nourished patient who is awake, alert, sb4 and in no acute distress. Head/Face: Normocephalic, atraumatic. Eyes: Extra-ocular motions intact. Periorbital areas with no swelling, redness, or edema. ENT: Mucous membranes moist. Cardiovascular: Regular rate and rhythm with a normal S1 and S2. Respiratory: No increased work of breathing, no retractions or nasal flaring. Abdomen/GI: Soft, non-tender, no distension. Skin: Warm, dry with normal turgor. Normal color with no rashes, no lesions, and no evidence of cellulitis. Vital Signs: 14:16 BP 143 / 75; Pulse 85; Resp 17; Temp 97.8; Pulse Ox 100% ; Weight 111.13 kg; Height 6 ko1 ft. 0 in. ; 17:00 BP 139 / 69; Pulse 88; Resp 16; Pulse Ox 99% ; bp 18:19 BP 127 / 71; Pulse 67; Resp 16; Pulse Ox 99% ; bp 14:16 Body Mass Index 33.23 (111.13 kg, 182.88 cm) ko1 MDM: 14:24 Medical Screening Exam initiated sb4 17:33 Data reviewed: vital signs, nurses notes, lab test result(s), EKG, radiologic studies, sb4 and as a result, I will discharge patient. Scoring Tools HEART Score: History: ECG: Age: Risk Factors: > or = 3 Risk factors for atherosclerotic disease (2), Troponin: Total Score = 4. Counseling: I had a detailed discussion with the patient and/or guardian regarding the historical points, exam findings, and any diagnostic results supporting the discharge/admit diagnosis, the presence of at least one elevated blood pressure reading (>120/80) during this emergency department visit, lab results, radiology results, the need for outpatient follow up, a cleat thrower, to return to the emergency department if symptoms worsen or persist or if there are any questions or concerns that arise at home. 09/05 00:03 ED course: pain has improved, trop negative x 2. has close follow up with his sb4 cleat thrower. he is stable for discharge home. 09/04 14:22 Order name: Basic Metabolic Panel; Complete Time: 15:45 sb4 09/04 14:22 Order name: CBC with Diff; Complete Time: 15:12 sb4 09/04 14:22 Order name: LFT's; Complete Time: 15:45 sb4 09/04 14:22 Order name: Magnesium; Complete Time: 15:45 sb4 09/04 14:22 Order name: NT PRO-BNP; Complete Time: 15:45 sb4 09/04 14:22 Order name: PT-INR; Complete Time: 15:15 sb4 09/04 14:22 Order name: Troponin HS; Complete Time: 15:45 sb4 09/04 16:11 Order name: Troponin High Sensitivity: at 1700; Complete Time: 17:21 sb4 09/04 14:22 Order name: XRAY Chest (1 view); Complete Time: 16:10 sb4 09/04 14:22 Order name: EKG; Complete Time: 14:23 sb4 09/04 14:22 Order name: Cardiac monitoring; Complete Time: 14:51 sb4 09/04 14:22 Order name: EKG - Nurse/Tech; Complete Time: 15:02 sb4 09/04 14:22 Order name: IV Saline Lock; Complete Time: 15:02 sb4 09/04 14:22 Order name: Labs collected and sent; Complete Time: 15:02 sb4 09/04 14:22 Order name: O2 Per Protocol; Complete Time: 14:51 sb4 09/04 14:22 Order name: O2 Sat Monitoring; Complete Time: 14:51 sb4 EC/17 15:10 Rate is 74 beats/min. Rhythm is regular, Normal Sinus Rhythm. Left axis deviation sb4 noted. [place] interval is normal at 172 msec. QRS interval is normal at 106 msec. QT interval is normal at 400 msec. No Q waves. T waves are Normal. No ST changes noted. Clinical impression: No evidence of ischemia. Interpreted by me. Reviewed by me. Administered Medications: No medications were administered Disposition: 19:53 Co-signature as Attending Physician, Gil Munoz MD I reviewed the patient's care rn provided by the Advanced Practice Provider and agree with the diagnosis and treatment plan. Disposition Summary: 09/04/24 17:36 Discharge Ordered Notes: Location: Home sb4 Problem: new sb4 Symptoms: have improved sb4 Condition: Stable sb4 Diagnosis - Chest pain, unspecified sb4 Followup: sb4 - With: Emergency Department - When: As needed - Reason: Trouble breathing, Worsening of condition Discharge Instructions: - Discharge Summary Sheet sb4 - Nonspecific Chest Pain, Adult, Rlwi-up-Sift sb4 Forms: - Patient Portal Instructions sb4 - Leadership Thank You Letter sb4 Signatures: Dispatcher [employer] Gil Celestin MD MD rn Oliver, Kathy, RN RN ko1 Brown, Letty, PA-C PA-C sb4 Corrections: (The following items were deleted from the chart) 14:45 14:42 patient with history of HTN, DM, CAD s/p 2 stents 6 months ago presents with sb4 chest pain. states he was having chest pain prior to the stents and has still been experiencing chest pain since. states the pains are intermittent, usually after exerting himself, improve with rest and nitroglycerin. he has seen cardiology since, had several tests done without any diagnoses/explanations for the chest pains. states today he was working in the yard, lifted a 40 pound box, then started experiencing a sharp chest pain that radiates to both of his arms. he took 3 nitroglycerin and states the pain hasn't really improved and his BP has increased. sb4
[2024-09-04 18:39] VITALS: TEMP 97.8
[2024-09-04 18:40] VITALS: O2SAT 99
[2024-09-04 18:41] VITALS: BP 127/71
--- NOTE | 2024-09-10 13:12 | EKG ---
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
== END 2024-09-04 18:20 | disposition home or self-care (01) ==
LOC: ER 14:12
DX: R07.9 Chest pain, unspecified (principal); E11.9 Type 2 diabetes mellitus without complications; I10 Essential (primary) hypertension; Z95.818 Presence of other cardiac implants and grafts
CPT/HCPCS: 36415; 71045; 80048; 80076; 83735; 83880; 84484; 85025; 85610; 93005; 99284